=== PATIENT | female | born 1980 | race Caucasian/White ===

== ENCOUNTER 2018-01-21 15:38 | Emergency (ER) | payer OTHER ==
--- NOTE | 2018-01-21 16:08 | ED Physician Documentation ---
Abdominal Pain - HISTORIAN Historian: patient - HPI Chief Complaint: Abdominal Pain Onset: days ago (yesterday) Duration: constant Timing: still present Context: denies: out of country travel, bad food Quality: aching Associated Symptoms: nausea. 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 denies: constipation, black stools, bloody urine, bloody stools, dark urine - SOCIAL HX Smoking History: greater than 1 pack/day Alcohol Use: occasionally Drug Use: none - FAMILY HX Family History: no significant history - PAST HX Past History: none. denies: peptic ulcer Ischemic Bowel Risk Factors: none Other History: none Surgeries/Procedures: BLT Immunizations: referred to PCP Home Medications: Ambulatory Orders Medication Instructions Recorded Ondansetron HCl Rapdis [Zofran Odt] 4 mg PO Q6 PRN #20 tab 01/21/18 Sulfamethoxazole/Trimethoprim 1 each PO BID #14 tablet 01/21/18 [Bactrim DS] Tramadol HCl [Ultram] 50 mg PO Q6 PRN #20 tablet 01/21/18 Allergies/Adverse Reactions: Allergies Allergy/AdvReac Type Severity Reaction Status Date / Time acetaminophen [From Vicodin] Allergy Verified 01/21/18 16:16 hydrocodone bitartrate Allergy Verified 01/21/18 16:16 [From Vicodin] hydromorphone HCl Allergy Verified 01/21/18 16:16 [From Dilaudid] lidocaine Allergy Verified 01/21/18 16:16 - VITAL SIGNS Vital Signs: Vital Signs Temp Pulse Resp BP Pulse Ox 97.4 F L 86 16 96/60 93 01/21/18 15:45 01/21/18 15:45 01/21/18 15:45 01/21/18 15:45 01/21/18 15:45 - REVIEWED ASSESSMENTS Nursing Assessment Reviewed: Yes Vitals Reviewed: Yes Progress - Progress Progress: 17:03 Patient states that the pain in now more in the LLQ with radiation into the left flank area. Will get CT scanof the ABD/PELVIS. Pharynx normal, no swelling noted, lungs clear. 17:53 Patient is not feeling a lot different. Still feels that there is something going on with her kidney causing the pain. Patient again offered pain medication but refused. No breathing issues. ED Results Lab/Radiology - Lab Results Lab Results: Lab Results 01/21/18 01/21/18 16:20 16:20 WBC 10.20 K/ul K/ul (4.00-12.00) RBC 4.72 M/ul M/ul (3.90-5.20) Hgb 14.6 g/dL g/dL (12.0-16.0) Hct 44.2 % % (34.5-46.5) MCV 93.6 fl fl (80.0-100.0) MCH 31.0 pg pg (28.0-34.0) MCHC 33.1 g/dL g/dL (30.0-36.0) RDW 12.6 % % (11.3-14.3) Plt Count 220 K/mm3 K/mm3 (130-400) Neut % (Auto) 77.9 % % (39.0-79.0) Lymph % (Auto) 14.3 % L % (16.0-50.0) [place] % (Auto) 4.0 % % (0.0-11.0) Eos % (Auto) 2.3 % % (0.0-6.8) Baso % (Auto) 0.4 (0.0-1.5) Neut # (Auto) 7.9 # k/uL H # k/uL (1.4-7.7) Lymph # (Auto) 1.4 # k/uL # k/uL (0.6-4.0) [place] # (Auto) 0.4 # k/uL # k/uL (0.0-0.9) Eos # (Auto) 0.2 # k/uL # k/uL (0.0-0.6) Baso # (Auto) 0.0 # k/uL # k/uL (0.0-0.5) Reactive Lymphs % 1.1 % % (0.0-5.0) Reactive Lymphs # 0.1 # k/uL # k/uL (0.0-0.8) Sodium 142 mmol/L mmol/L (136-145) Potassium 3.6 mmol/L mmol/L (3.5-5.1) Chloride 107 mmol/L mmol/L (98-107) Carbon Dioxide 24 mmol/L mmol/L (22-30) BUN 11 mg/dL mg/dL (7-17) Creatinine 0.90 mg/dL mg/dL (0.52-1.04) Estimated Creat Clear 161 Est GFR ( Amer) > 60 (60 - ) Est GFR (Non-Af Amer) > 60 (60 - ) Glucose 86 mg/dL mg/dL (74-106) Calcium 8.8 mg/dL mg/dL (8.4-10.2) Total Bilirubin 0.7 mg/dL mg/dL (0.2-1.3) AST 18 U/L U/L (15-46) ALT 26 U/L U/L (13-69) Alkaline Phosphatase 86 U/L U/L (38-126) Total Protein 7.1 g/dL g/dL (6.3-8.2) Albumin 4.0 g/dL g/dL (3.5-5.0) Lipase 76 U/L U/L (23-300) - Radiology Radiology Impressions: Examination: Obstruction series History: GENERALIZED ABDOMINAL PAIN X 1 DAY (Hx) Findings: 4 views obtained of the chest and abdomen. Single view of the chest without focal consolidative process. Cardiac silhouette not enlarged. No abnormal dilation of the large or small bowel. Air and stool throughout the large bowel. No suspicious calcification projecting over the renal fossa or the lower pelvic region. Osseous structures are appropriate for age. Impression: No acute pulmonary process. Moderate large bowel stool. No obstruction. No suspicious calcifications by plain film sensitivity. CT abdomen and pelvis without IV contrast Clinical history: Left flank pain Radiation dose DLP 922 No visible focal hepatic or splenic pathology. No stones are seen in the kidneys. No visible hydronephrosis. No definite stones in the ureters. Normal bladder. Normal appendix. No bowel obstruction, no free fluid or free air in the abdomen or pelvis. Normal lumbar spine and pelvis. Hypertrophy of the adrenal glands Impression: Normal CT abdomen and pelvis without IV contrast. - Orders Orders: ED Orders Category Date Time Status ABD SERIES [ABD SERIES PA CHEST] [RAD] Stat Exams 01/21/[address] ABD & PELVIS W/O CON Stat Exams 01/21/18 Completed CBC/PLATELET/DIFF Routine Lab 01/21/18 16:20 Completed CMP Routine Lab 01/21/18 16:20 Completed LIPASE Routine Lab 01/21/18 16:20 Completed URINALYSIS Routine Lab 01/21/18 17:45 Ordered URINE CULTURE Routine Lab 01/21/18 17:51 Ordered 0.9 % Sodium Chloride [Normal Saline] 1,000 ml Med 01/21/18 17:00 Ordered IV .Q1H Lidocaine 2%Visc 15ml [Xylocaine] Med 01/21/18 16:18 Discontinued 600 mg .ROUTE .STK-MED ONE Mag Hydrox/Al Hydrox/Simeth [Mylanta] Med 01/21/18 16:18 Discontinued 30 ml PO .STK-MED ONE Mag Hydrox/Al Hydrox/Simeth [Mylanta] 30 ml Med 01/21/18 16:16 Discontinued Lidocaine 2%Visc 15ml [Xylocaine] 20 mg PHENobarb/HYOSCY/ATROPINE/SCOP [] 10 ml PO NOW Ondansetron HCl/Pf [Zofran 4 mg/2 ml] Med 01/21/18 16:27 Discontinued 4 mg .ROUTE .STK-MED ONE Ondansetron HCl/Pf [Zofran 4 mg/2 ml] Med 01/21/18 16:29 Discontinued 4 mg IVP NOW ONE diphenhydrAMINE HCL [Benadryl] Med 01/21/18 16:29 Discontinued 25 mg IVP NOW ONE diphenhydrAMINE HCL [Benadryl] Med 01/21/18 16:27 Discontinued 50 mg .ROUTE .STK-MED ONE Abdominal Pain Physical Exam - Physical Exam General Appearance: alert, mild distress NECK: normal inspection, supple. No: lymphadenopathy RESPIRATORY: no resp distress, chest non-tender. No: wheezes, rales, rhonchi CVS: reg rate & rhythm, heart sounds normal, equal pulses, no murmur, no gallop ABDOMEN: soft, no organomegaly, normal bowel sounds, no distension, tenderness ( diffuse, more prominent to the LUQ area, LLQ). No: rebound, guarding BACK: CVA tenderness (L) (mild) SKIN: warm/dry, normal color EXTREMITIES: no edema NEURO: oriented X3, mood/affect nml, cognition normal Vital Signs: Vital Signs Temp Pulse Resp BP Pulse Ox 97.4 F L 86 16 96/60 93 01/21/18 15:45 01/21/18 15:45 01/21/18 15:45 01/21/18 15:45 01/21/18 15:45 Discharge Clincal Impression: Cystitis Constipation Qualifiers: Constipation type: slow transit constipation Qualified Code(s): K59.01 - Slow transit constipation Prescriptions: Ondansetron HCl Rapdis [Zofran Odt] 4 mg PO Q6 PRN #20 tab PRN Reason: Nausea / Vomiting Sulfamethoxazole/Trimethoprim [Bactrim DS] 1 each PO BID #14 tablet Tramadol HCl [Ultram] 50 mg PO Q6 PRN #20 tablet PRN Reason: Pain Referrals: Jessica Ingram MD [Primary Care Provider] - 2 Days Additional Instructions: Drink a lot of fluids. Take Bacrtim DS one tablet twice a day for the next 7 days. Take tramadol as needed for pain and zofran as needed for nausea. If you develop any high fever, chills, increasing abd pain or uncontrolled nauea to see your primary care provider or return to the ED. Condition: Stable Disposition: 01 HOME, SELF-CARE Decision to Admit: NO Date of Decison to Admit: 01/21/18 Decision Time: 18:23
[2018-01-21 16:16] VITALS: BP 96/60
[2018-01-21] MEDS ORDERED: Lidocaine 2%Visc 15ml 20 MG/ML UDC ONE (16:18)
[2018-01-21] MEDS ORDERED: MAG HYDROX/ALUMINUM HYD/SIMETH 30 ML UDC PO ONE (16:18)
[2018-01-21] MEDS: MAG HYDROX/ALUMINUM HYD/SIMETH 30 ML, Lidocaine 2%Visc 15ml 20 MG, PHENobarb/HYOSCY/ATR... PO ONE ×6 (16:22→16:25)
[2018-01-21] MEDS ORDERED: diphenhydrAMINE HCL 50 MG/ML VIAL ONE (16:27)
[2018-01-21] MEDS ORDERED: ONDANSETRON HCL/PF 4 MG/ 2ML VIAL ONE (16:27)
[2018-01-21] MEDS ORDERED: diphenhydrAMINE HCL 50 MG/ML VIAL IVP ONE (16:29)
[2018-01-21] MEDS ORDERED: ONDANSETRON HCL/PF 4 MG/ 2ML VIAL IVP ONE (16:29)
[2018-01-21 16:32] LABS: BASOPHILS % 0.4 (0.0-1.5); EOSINOPHILS % 2.3 % (0.0-6.8); MEAN CORPUSCULAR VOLUME 93.6 fl (80.0-100.0); NEUTROPHILS # 7.9 # k/uL (1.4-7.7)
[2018-01-21 16:43] LABS: eGFR (African) > 60; eGFR (Non-African) > 60
[2018-01-21] MEDS ORDERED: 0.9 % SODIUM CHLORIDE 1,000 ML IV SCH (17:00)
[2018-01-21] MEDS ORDERED: 0.9 % SODIUM CHLORIDE 1,000 ML IV ONE (17:01)
--- NOTE | 2018-01-21 17:41 | Diagnostic Imaging Report ---
AUGUSTIN BUSH [facility] [id number] [facility].[address] [id number] Report Submission Date: Jan 21, 2018 5:35:01 PM CDT Patient Study Name: NASIMA DOZIER Date: Jan 21, 2018 5:05:10 PM CDT Modality Type: DX Gender: F Description: ABDOMEN : 84 Institution: [facility] Physician: AUGUSTIN BUSH Examination: Obstruction series History: GENERALIZED ABDOMINAL PAIN X 1 DAY (Hx) Findings: 4 views obtained of the chest and abdomen. Single view of the chest without focal consolidative process. Cardiac silhouette not enlarged. No abnormal dilation of the large or small bowel. Air and stool throughout the large bowel. No suspicious calcification projecting over the renal fossa or the lower pelvic region. Osseous structures are appropriate for age. Impression: No acute pulmonary process. Moderate large bowel stool. No obstruction. No suspicious calcifications by plain film sensitivity. Electronically signed on Jan 21, 2018 5:35:01 PM CDT by: Jony JONES
--- NOTE | 2018-01-21 18:20 | Diagnostic Imaging Report ---
PATRICK BUSH [facility] [address] [facility] [address] [place] [address]. [id number] Report Submission Date: Jan 21, 2018 6:12:35 PM CDT Patient Study Name: NASIMA DOZIER Date: Jan 21, 2018 5:46:32 PM CDT Modality Type: CT\SR Gender: F Description: CT ABD PELVIS W/O CO : 84 Institution: [facility] Physician: PATRICK BUSH CT abdomen and pelvis without IV contrast Clinical history: Left flank pain Radiation dose DLP 922 No visible focal hepatic or splenic pathology. No stones are seen in the kidneys. No visible hydronephrosis. No definite stones in the ureters. Normal bladder. Normal appendix. No bowel obstruction, no free fluid or free air in the abdomen or pelvis. Normal lumbar spine and pelvis. Hypertrophy of the adrenal glands Impression: Normal CT abdomen and pelvis without IV contrast. Electronically signed on Jan 21, 2018 6:12:35 PM CDT by: Patrick JONES
[2018-01-22 06:45] LABS: APPEARANCE,URINE CLOUDY (CLEAR); COLOR,URINE YELLOW (YELLOW)
[2018-01-22 06:46] LABS: OCCULT BLOOD,URINE TRACE-LYSED (NEGATIVE); UROBILINOGEN URINE 0.2 Eu (0.2-1.0)
== END 2018-01-21 18:40 | disposition home or self-care (01) ==
LOC: ED 15:38
DX: K59.01 Slow transit constipation (principal); R11.0 Nausea; R10.9 Unspecified abdominal pain
CPT/HCPCS: 74022; 74176; 80053; 81002; 83690; 85025; 87086; 87186; A9270; J1200; J2405; J7030; 96365; 96375; 99283; S1016

== ENCOUNTER 2018-08-04 15:13 | Emergency (ER) | payer OTHER ==
--- NOTE | 2018-08-04 15:16 | ED Physician Documentation ---
General Adult - HISTORIAN Historian: patient - HPI Stated Complaint: chest pain/epigastric pain Chief Complaint: Chest Pain Onset: minutes (30) Timing: better Severity: mild Further Comments: yes (She reports she was driving to [employer] and she got "what I thought was heartburn but not like hearburn" she reports history of IBS she had pain that made her feel dizzy and there was a buzzing sensation in her ears and tingling in her hands . She states she had a regular BM this am. She states that she has no urinary complaints. No fever. No radiation of symptoms) - ROS CONST: no problems EYES/ENT: none CVS/RESP: none MS/SKIN/LYMPH: none - PAST HX Past History: other (IBS ) Immunizations: UTD Allergies/Adverse Reactions: Allergies Allergy/AdvReac Type Severity Reaction Status Date / Time acetaminophen [From Vicodin] Allergy Verified 08/04/18 16:04 hydrocodone bitartrate Allergy Verified 08/04/18 16:04 [From Vicodin] hydromorphone HCl Allergy Verified 08/04/18 16:04 [From Dilaudid] lidocaine Allergy Verified 08/04/18 16:04 Home Medications: Ambulatory Orders Medication Instructions Recorded NK 08/04/18 - SOCIAL HX Smoking History: cigarettes Alcohol Use: none Drug Use: none - FAMILY HX Family History: No - VITAL SIGNS Vital Signs: Vital Signs Temp Pulse Resp BP Pulse Ox 96/60 01/21/18 18:40 - REVIEWED ASSESSMENTS Nursing Assessment Reviewed: Yes Vitals Reviewed: Yes Progress - Progress Progress: 1615: discussed results and plan (awaiting lab) she is agreeable DG 1633: Labs resulted. Plan will be as follows Batrim DS take 1 by mouth BID x 10 days and Pyridium 200 mg take 1 by mouth TID X 3 days. Increase fluids. DG General Adult Physical Exam - PHYSICAL EXAM GENERAL APPEARANCE: moderate distress EENT: eye inspection normal, ENT inspection normal, pharynx normal, no signs of dehydration, ISSA NECK: normal inspection RESPIRATORY: no resp distress, chest non-tender, breath sounds normal CVS: reg rate & rhythm, heart sounds normal, equal pulses, no murmur ABDOMEN: soft, normal bowel sounds, no distension, tenderness (with palpation of epigastric area ) BACK: normal inspection, no CVA tenderness SKIN: warm/dry, normal color EXTREMITIES: non-tender, normal range of motion, no evidence of injury, no edema NEURO: oriented X3 Discharge Clincal Impression: UTI (urinary tract infection) Qualifiers: Urinary tract infection type: site unspecified Hematuria presence: without hematuria Qualified Code(s): N39.0 - Urinary tract infection, site not specified Referrals: Jessica Ingram MD [Primary Care Provider] - 2 Days Comments: 1. Bactrim DS take 1 by mouth twice per day x 10 days 2. Pyridum 200 mg take 1 by mouth three times per day x 3 days 3. Increase fluid 4. See PCP in 10 days for follow up or sooner if symptoms persist 5. Return to ER for any concerns Condition: Stable Disposition: 01 HOME, SELF-CARE Decision to Admit: NO Date of Decison to Admit: 08/04/18 Decision Time: 16:36
[2018-08-04 15:40] LABS: BASOPHILS % 0.7 (0.0-1.5); EOSINOPHILS % 1.4 % (0.0-6.8); MEAN CORPUSCULAR HEMOGLOBIN 30.8 pg (28.0-34.0); MONOCYTES % 6.7 % (0.0-11.0)
[2018-08-04] MEDS: 0.9 % SODIUM CHLORIDE 1,000 ML IV ONE (15:48)
[2018-08-04] MEDS: FAMOTIDINE/PF 20 MG/2 ML VIAL IVP ONE (15:48)
[2018-08-04] MEDS: PHENAZOPYRIDINE HCL 200 MG TABLET PO ONE (16:17)
[2018-08-04 16:26] LABS: eGFR (Non-African) > 60
[2018-08-04 16:49] VITALS: BP 111/72
[2018-08-05 08:24] LABS: APPEARANCE,URINE CLOUDY (CLEAR); COLOR,URINE AMBER (YELLOW); OCCULT BLOOD,URINE 1+ (NEGATIVE)
== END 2018-08-04 16:47 | disposition home or self-care (01) ==
LOC: ED 15:13
DX: N39.0 Urinary tract infection, site not specified (principal); R12 Heartburn
CPT/HCPCS: 80053; 81002; 83690; 85025; 87086; 93005; J7030; 96365; 96375; 99284; S0028; S1016

== ENCOUNTER 2018-11-24 18:11 | Emergency (ER) | payer OTHER ==
[2018-11-24] MEDS ORDERED: KETOROLAC TROMETHAMINE 60 MG/2 ML VIAL IM ONE (18:28)
--- NOTE | 2018-11-24 18:31 | ED Physician Documentation ---
Lower Extremity Injury - HISTORIAN Historian: patient - HPI Chief Complaint: Ankle Injury Additional Information: Patient is a 37 year old female that presents to the ER with c/o left ankle pain- she states that she has had problems with her ankle giving out since she had surgery years ago- she states around noon today her ankle gave out again causing her to roll the ankle. Neurovasculars are intact, pedal pulses palpable, and sensation intact- there is no evidence of deformity or bruising. Front/Back of Body, Lg ([place]): 1 - left ankle pain Onset: hours Where: home Severity: moderate Context: other (ankle gave out and she rolled ankle) Associated Symptoms:: popping sensation, unable to bear weight Modifying Factors:: pain on movement - ROS CONST: no problems CVS/RESP: none GI/: denies: problems urinating, nausea MS/SKIN/LYMPH: denies: foot swelling, ankle swelling NEURO: denies: headache - PAST HX Past History: other (Tubal ligation) Immunizations: UTD Allergies/Adverse Reactions: Allergies Allergy/AdvReac Type Severity Reaction Status Date / Time acetaminophen [From Vicodin] Allergy Verified 11/24/18 18:26 hydrocodone bitartrate Allergy Verified 11/24/18 18:26 [From Vicodin] hydromorphone HCl Allergy Verified 11/24/18 18:26 [From Dilaudid] lidocaine Allergy Verified 11/24/18 18:26 Home Medications: Ambulatory Orders Medication Instructions Recorded NK 08/04/18 - SOCIAL HX Smoking History: less than 1 pack/day Alcohol Use: rarely Drug Use: none - FAMILY HX Family History: none - VITAL SIGNS Vital Signs: Vital Signs Temp Pulse Resp BP Pulse Ox 98.2 F 89 18 125/78 98 11/24/18 18:54 11/24/18 18:54 11/24/18 18:54 11/24/18 18:54 11/24/18 18:54 - REVIEWED ASSESSMENTS Nursing Assessment Reviewed: Yes Vitals Reviewed: Yes Progress - Progress Progress: IM toradol injection helped with discomfort ED Results Lab/Radiology - Radiology Radiology Impressions: Ankle, 3 views HISTORY Injury FINDINGS The osseous, joint and soft tissue structures are normal. IMPRESSION Normal. - Orders Orders: ED Orders Category Date Time Status Remy Wrap Affected Extremity 1T Care 11/24/18 18:40 Active ANKLE 3 VIEWS OR MORE [RAD] Stat Exams 11/24/18 Completed Ketorolac Tromethamine [Toradol] Med 11/24/18 18:28 Discontinued 60 mg IM NOW ONE Lower Extremities Injury Phy - Physical Exam General Appearance: no acute distress, alert Hips: bilateral hip: non-tender, normal inspection, normal range of motion, no evidence of injury Legs: bilateral: non-tender, normal inspection, normal range of motion, no evidence of injury Knees: bilateral: non-tender, normal inspection, normal range of motion, no evidence of injury Ankle: left: limited range of motion, pain Gait: limited by pain Neuro/Vascular/Tendon: no vascular compromise, motor nml, sensation nml Head/ENT: nml inspection Neck/Back: nml inspection Resp/CVS: chest non-tender, breath sounds nml, heart sounds nml Abdomen: non-tender Discharge Clincal Impression: Ankle sprain Referrals: Jessica Ingram MD [Primary Care Provider] - 2 Days Additional Instructions: Rest, Ice, Compression (wear remy wrap), and Elevate May alternate Tylenol and Ibuprofen Follow up with PCP as needed Condition: Good Disposition: 01 HOME, SELF-CARE Decision to Admit: NO Decision Time: 18:54
[2018-11-24 18:32] VITALS: BP 125/78
--- NOTE | 2018-11-24 18:49 | Diagnostic Imaging Report ---
CRYSTAL BOYD [facility] [address] [facility].[address] [address] Report Submission Date: Nov 24, 2018 6:46:36 PM SOFTWARE TRAINER Patient Study Name: NASIMA DOZIER Date: Nov 24, 2018 6:31:46 PM SOFTWARE TRAINER Modality Type: DX Gender: F Description: ANKLE 3 VIEWS OR MORE : 84 Institution: [facility] Physician: CRYSTAL BOYD Ankle, 3 views HISTORY Injury FINDINGS The osseous, joint and soft tissue structures are normal. IMPRESSION Normal. Electronically signed on Nov 24, 2018 6:46:36 PM SOFTWARE TRAINER by: Nishant JONES
== END 2018-11-24 18:53 | disposition home or self-care (01) ==
LOC: ED 18:11
DX: S93.402A Sprain of unspecified ligament of left ankle, initial encounter (principal); X58.XXXA Exposure to other specified factors, initial encounter; Y93.9 Activity, unspecified; Y92.9 Unspecified place or not applicable
CPT/HCPCS: 29540; 73610; 96372; 99283; J1885